=== PATIENT | female | born 1990 | race Asian ===

== ENCOUNTER 2017-06-23 10:41 | Inpatient (IN) | payer SELFPAY ==
[~2017-06-23] VITALS: Ht 170 cm; Wt 96.2 kg
[2017-06-23] MEDS ORDERED: PREN1SGL25 PO (19:59)
[2017-06-23] MEDS ORDERED: LACTATED RINGERS 1,000 ML IV SCH (20:00)
[2017-06-23] MEDS ORDERED: METHYLERGONOVINE 0.2 MG/ML AMP IM PRN ×2 (20:00→21:10)
[2017-06-23] MEDS ORDERED: CARBOPROST 250 MCG/ML AMP IM PRN (20:00)
[2017-06-23] MEDS ORDERED: FERR-252 PO (20:00)
[2017-06-23] MEDS ORDERED: ceFAZolin 1,000 MG VIAL ONE (20:18)
[2017-06-23] MEDS ORDERED: CITRIC ACID/SODIUM CITRATE 30 ML UDC ONE (20:18)
[2017-06-23] MEDS ORDERED: TRIAMCINOLONE 40 MG/ML 5ML VIAL ONE (20:51)
[2017-06-23] MEDS ORDERED: OXYTOCIN 10 UNITS/ML VIAL ONE (20:51)
[2017-06-23] MEDS ORDERED: METHYLERGONOVINE 0.2 MG/ML AMP ONE (20:52)
[2017-06-23] MEDS ORDERED: ONDANSETRON 4 MG/2 ML VIAL ONE (21:00)
[2017-06-23] MEDS ORDERED: ePHEDrine 50 MG/ML VIAL ONE (21:00)
[2017-06-23 21:02] LABS: BASOPHILS % (AUTO) 0.5 % (0.0-2.0); EOSINOPHILS % (AUTO) 0.2 % (0.0-4.0); HEMATOCRIT 38.4 % (36-48); HEMOGLOBIN 12.4 g/dL (12.0-16.0); LYMPHOCYTES # (AUTO) 1.7 K/uL (2.5-16.5); LYMPHOCYTES % (AUTO) 25.5 % (20.5-51.1); MEAN CORPUSCULAR HEMOGLOBIN 27 pg (27-31); MEAN CORPUSCULAR HGB CONC 32 g/dL (33-37); MEAN CORPUSCULAR VOLUME 82.4 fL (80-94); MONOCYTES # (AUTO) 0.5 K/uL (0.8-1.0); MONOCYTES % (AUTO) 7.4 % (1.7-9.3); NEUTROPHILS # (AUTO) 4.5 K/uL (1.8-7.7); NEUTROPHILS % (AUTO) 66.4 % (42.2-75.2); PLATELET COUNT (AUTO) 144 K/uL (140-450); RED BLOOD CELL COUNT(AUTO) 4.66 MIL/uL (4.20-5.40); RED CELL DISTRIBUTION WIDTH 17.4 % (11.6-13.7); WHITE BLOOD COUNT (AUTO) 6.8 K/uL (4.8-10.8)
[2017-06-23 21:03] LABS: BLOOD, URINE 1+ (NEGATIVE); COLOR,URINE YELLOW (YELLOW); LEUKOCYTE ESTERASE ,URINE NEGATIVE (NEGATIVE); NITRITE, URINE NEGATIVE (NEGATIVE); PH,URINE 5.5 (5.0-9.0); UGLUCOSE NEGATIVE (NEGATIVE)
[2017-06-23 21:04] LABS: APPEARANCE,URINE HAZY (CLEAR)
[2017-06-23] MEDS ORDERED: MIDAZOLAM 2 MG/2 ML VIAL ONE ×2 (21:08)
[2017-06-23] MEDS ORDERED: fentaNYL 0.05 MG/ML VIAL ONE (21:08)
[2017-06-23] MEDS ORDERED: KETAMINE 500 MG/5 ML VIAL ONE (21:08)
[2017-06-23] MEDS ORDERED: BUPIVACAINE-MPF 0.75% 10 ML VIAL INJ ONE (21:09)
[2017-06-23] MEDS ORDERED: MORPHINE PRES FREE 10 MG/10 ML AMP IV ONE (21:09)
[2017-06-23] MEDS ORDERED: IBUPROFEN 800 MG TAB PO PRN (21:10)
[2017-06-23] MEDS ORDERED: TEMAZEPAM 15 MG CAP PO PRN (21:10)
[2017-06-23] MEDS ORDERED: MEASLES, MUMPS, AND RUBELLA 1 VIAL SQVAC PRN (21:10)
[2017-06-23] MEDS ORDERED: SIMETHICONE 80 MG TAB.CHEW PO PRN (21:10)
[2017-06-23] MEDS ORDERED: HYDROcodone/APAP 5/325 MG 1 TAB TAB PO PRN (21:10)
[2017-06-23] MEDS ORDERED: oxyCODONE/APAP 5/325 MG 1 TAB TAB PO PRN (21:10)
[2017-06-23] MEDS ORDERED: TRIMETHOBENZAMIDE 200 MG/2 ML SYR IM PRN (21:10)
[2017-06-23 21:14] LABS: ANION GAP 16.6 (8-16); CREATININE 0.5 mg/dL (0.6-1.3); POTASSIUM 3.6 mmol/L (3.5-5.1)
[2017-06-23 21:25] LABS: ALBUMIN 3.3 g/dL (3.4-5.0); TOTAL BILIRUBIN 0.9 mg/dL (0.0-1.0)
[2017-06-23 21:26] LABS: CALCIUM OXALATE CRYSTALS,UR 0-10 /HPF (None Seen); RBC,URINE 0-5 (RARE) /HPF (0-5); WBC,URINE 0-5 (RARE) /HPF (0-5)
[2017-06-23 21:27] LABS: BILIRUBIN,URINE NEGATIVE (NEGATIVE)
[2017-06-23] MEDS ORDERED: ONDANSETRON 4 MG/2 ML VIAL IVP PRN (21:50)
[2017-06-23] MEDS ORDERED: diphenhydrAMINE 50 MG/ML VIAL IVP PRN (21:50)
[2017-06-23] MEDS ORDERED: KETOROLAC 30 MG/ML VIAL IVP PRN (21:50)
[2017-06-23 22:24] VITALS: BP 112/70
[2017-06-24] MEDS ORDERED: OXYTOCIN 20 UNITS/LR PREMIX 1,000 ML IV ONE (04:41)
[2017-06-24] MEDS: OXYTOCIN 20 UNITS in LACTATED RINGERS 1,000 ML IV SCH ×3 (05:29→20:57)
[2017-06-24 06:26] LABS: BASOPHILS % (AUTO) 0.2 % (0.0-2.0); HEMATOCRIT 35.5 % (36-48); HEMOGLOBIN 11.7 g/dL (12.0-16.0); LYMPHOCYTES # (AUTO) 0.7 K/uL (2.5-16.5); LYMPHOCYTES % (AUTO) 7.9 % (20.5-51.1); MEAN CORPUSCULAR HEMOGLOBIN 27 pg (27-31); MEAN CORPUSCULAR HGB CONC 33 g/dL (33-37); MEAN CORPUSCULAR VOLUME 82.5 fL (80-94); MONOCYTES # (AUTO) 0.6 K/uL (0.8-1.0); NEUTROPHILS # (AUTO) 8.1 K/uL (1.8-7.7); NEUTROPHILS % (AUTO) 85.9 % (42.2-75.2); PLATELET COUNT (AUTO) 136 K/uL (140-450); RED CELL DISTRIBUTION WIDTH 17.2 % (11.6-13.7); WHITE BLOOD COUNT (AUTO) 9.4 K/uL (4.8-10.8)
[2017-06-24 09:58] LABS: RAPID PLASMA REAGIN NON-REACTIVE (Non Reactiv)
--- NOTE | 2017-06-24 11:43 | NUR ---
PATIENT HAS BEEN SCREENED AND CATEGORIZED LOW NUTRITION RISK. PATIENT WILL BE SEEN WITHIN 7 DAYS OF ADMISSION. 06/30/[address]
[2017-06-24] MEDS: DOCUSATE SOD/SENNA 50/8.6 MG 1 TAB PO SCH (20:38)
[2017-06-25] MEDS: DOCUSATE SOD/SENNA 50/8.6 MG 1 TAB PO SCH (20:44)
== END 2017-06-26 12:15 | disposition home or self-care (01) | DRG 766 ==
LOC: MLD 19:05 → MFCC 23:00
PROVIDERS: ADMIT Obstetrics & Gynecology; ATTEND Obstetrics & Gynecology
PROC: 10D00Z1 Extraction of Products of Conception, Low, Open Approach (ICD-10-PCS; principal; 2017-06-23 21:00)
DX: O34.211 Maternal care for low transverse scar from previous cesarean delivery (principal); O69.81X0 Labor and delivery complicated by cord around neck, without compression, not applicable or unspecified; Z37.0 Single live birth; O89.4 Spinal and epidural anesthesia-induced headache during the puerperium; Z28.21 Immunization not carried out because of patient refusal; Z3A.39 39 weeks gestation of pregnancy
CPT/HCPCS: 36415; 51702; 80053; 81001; 85025; 86592; 86886; 86900; 86901; J0690; J2210; J2250; J2270; J2405; J2590; J3010; J3301; J3490; J7060; J7120